=== PATIENT | female | born 1965 | race Caucasian/White ===

== ENCOUNTER 2022-03-12 05:07 | Observation (INO) ==
--- NOTE | 2022-02-07 15:42 | PAT Medication Instructions ---
Medication Instructions Date of Service February 07, 2022 Home Medications rizatriptan 10 mg tablet 10 mg PO Q2H PRN magnesium oxide 500 mg tablet 500 mg PO HS cholecalciferol (vitamin D3) 50 mcg (2,000 unit) capsule 2,000 unit PO QAM atorvastatin 40 mg tablet 80 mg PO HS Repatha INJ ezetimibe 10 mg tablet 10 mg PO HS hydrochlorothiazide 25 mg tablet 25 mg PO QAM Continue as directed rizatriptan 10 mg tablet 10 mg PO Q2H PRN(if needed) ASK your prescriber and surgeon Repatha INJ DO NOT take the morning of surgery cholecalciferol (vitamin D3) 50 mcg (2,000 unit) capsule 2,000 unit PO QAM hydrochlorothiazide 25 mg tablet 25 mg PO QAM Take evening before surgery magnesium oxide 500 mg tablet 500 mg PO HS atorvastatin 40 mg tablet 80 mg PO HS ezetimibe 10 mg tablet 10 mg PO HS Other Notes NOTHING TO EAT OR DRINK AFTER MIDNIGHT. If you have any questions please call us at [phone] or [phone] or [phone] or [phone]
--- NOTE | 2022-02-10 08:20 | Anesthesiology Consultation ---
Date of Service February 10, 2022 Assessment & Plan (1) Encounter for pre-operative examination: - Patient acceptable risk for surgery pending surgeon-ordered PCP preop evaluation (Dr. Hillary Ugarte, scheduled 02/27). - COVID screening: Per assessment on 02/10: No known COVID-19 positive contacts or current COVID-19 related symptoms. Travel screen negative. At surgeon discretion if preop Covid testing being done. - Outpatient joint assessment: Pt currently scheduled for inpatient pathway. If surgeon requests review for outpatient joint pathway, patient is acceptable candidate for outpatient joint program from anesthesia standpoint pending surgeon's office assessment of pt motivation/support/completion of same day joint program preop requirements. Chart Review Chart Review: Patient seen in Pre Admission Testing Teaching & Discussion Pre-Anesthesia Teaching/Discussion Notes: Instructed NPO after midnight before surgery,except medications with 15 cc of water. Medication instructions provided according to the PAT guidelines. History Surgery Operation Date: 03/12/22 09:15 Proposed Procedures p Left Total Knee Arthroplasty - Thor Funes MD Height/Weight Height: 5 ft 4 in Weight: 92.5 kg Allergies Allergy/AdvReac Type Severity Reaction Status Date / Time No Known Allergies Allergy Verified 02/07/22 14:57 Medications Home Medications Medication Instructions Recorded Confirmed Last Taken rizatriptan 10 mg tablet 10 mg PO Q2H PRN migraines 12/27/19 02/07/22 Unknown magnesium oxide 500 mg tablet 500 mg PO HS 01/05/20 02/07/22 Unknown cholecalciferol (vitamin D3) 50 2,000 unit PO QAM 01/19/20 02/07/22 Unknown mcg (2,000 unit) capsule atorvastatin 40 mg tablet 80 mg PO HS 02/13/20 02/07/22 Unknown Repatha INJ Q30M 02/07/22 Unknown ezetimibe 10 mg tablet 10 mg PO HS 02/07/22 02/07/22 Unknown hydrochlorothiazide 25 mg tablet 25 mg PO QAM 02/07/22 02/07/22 Unknown Past Medical History Medical History Fluid retention Controlled with HCTZ (also on for HTN) History of COVID-19 Suspected Fall 2019 (no formal testing but was positive and patient was symptomatic- headache, flu-like symptoms > resolved) Hyperlipidemia Hypertension Migraines Hx Osteoarthritis Exercise / Class Metabolic Activity II 4-5 Yardwork/Stairs/Walk up hill Past Family History Family History Daughter Factor V deficiency Other Deep vein thrombosis Past Surgical History Surgical History History of carpal tunnel release of both wrists Hx of colonoscopy Hx of tubal ligation Past Anesthesia History No Hx of Anesthesia Complications and No Family Hx of Anesthesia Complications Mother- PONV History of PONV No Hx of PONV and No Hx of Motion Sickness Social History Smoking Status: Never smoker Do You Dip or Chew Tobacco: No Hx Alcohol Use: Yes alcohol intake frequency: holidays/special occasions only Hx Substance Use: No substance use type: does not use Review of Systems Patient denies chest pain, shortness of breath, dyspnea on exertion, reflux, cough, wheezing, palpitations. Physical Exam Vital Signs VITALS BP 117/77 P 62 TEMP 98.5 SP02 98%RA RESP 16 PHYSICAL Full cervical extension range of motion. Full TMJ range of motion. TMD 3 finger breaths Mallampati Score 2 Dentition: missing molars, crown on molar Lungs: clear throughout to auscultation Cardiac: regular rate and rhythm, no murmurs noted Spine: normal Carotid arteries: negative bruit Extremities: no edema Lab Results Anesthesia Preop Results Results Anesthesia Widget: WBC 4.96 K/ul (4.8-10.8) 02/10/22 Hgb 13.2 g/dl (12.0-16.0) 02/10/22 Hct 39.3 % (34.1-44.9) 02/10/22 Plt 221 K/uL (130-400) 02/10/22 Na 141 mmol/L (136-145) 02/10/22 K 3.8 mmol/L (3.5-5.1) 02/10/22 Cl 104 mmol/L (98-107) 02/10/22 CO2 31 mmol/L (21-32) 02/10/22 BUN 12 mg/dl (6-23) 02/10/22 Creat 0.55 mg/dl (0.6-1.2) L 02/10/22 Glucose Level 74 mg/dl (70-99(Fasting)) 02/10/22 PT 10.4 Seconds (9.0-12.0) 02/10/22 PTT 25.5 Seconds (21.0-31.0) 02/10/22 INR 1.0 (0.9-1.1) 02/10/22 Urine Color Yellow 02/10/22 Urine Appearance Clear (Clear) 02/10/22 Urine pH 6.0 (4.5-7.5) 02/10/22 Urine Specific [place] 1.007 (1.000-1.030) 02/10/22 Urine Protein Negative (Negative) 02/10/22 Urine Glucose (UA) Negative (Negative) 02/10/22 Urine Ketones Negative (Negative) 02/10/22 Urine Blood Negative (Negative) 02/10/22 Urine Nitrite Negative (Negative) 02/10/22 Urine Bilirubin Negative (Negative) 02/10/22 Urine Urobilinogen Negative (Negative) 02/10/22 Urine Leukocyte Esterase Trace (Negative) H 02/10/22 Urine WBC (Auto) 1-5 /hpf (0-5) 02/10/22 Urine RBC (Auto) 0-4 /hpf (0-4) 02/10/22 Urine Hyaline Casts (Auto) 0 /lpf (0-5) 02/10/22 Urine Epithelial Cells (Auto) 20-30 /lpf (0-5) H 02/10/22 Urine Bacteria (Auto) Negative (Negative) 02/10/22 Blood Type A Positive 02/10/22 Antibody Screen NEGATIVE 02/10/22 Testing Laboratory Results 01/29/22 HGBA1C 6.1% Electrocardiogram Date: 02/10/22 Findings: + NSR @ (60) Chest X-Ray Date: 02/10/22 Findings: + NAD Stress Test Date: 11/11/20 Type: exercise Stress echo was negative for inducible ischemia. 90% MPHR. 6.4 METS. Occasional PVCs/PACs with stress. LVEF 55-59%. No significant valvular disease. COVID-19 Risk Screen Screening Information COVID-19 Screen Date: 02/10/22 Exposure 21 Days Family/Household +COVID Last 21 Days: No Exposure 10 Days Any COVID Exposure Last 10 Days: No Symptoms Last 10 Days Experienced COVID Sx Last 10 Days: No + COVID 0-90 Days COVID + in Last 0-90 Days: No
--- NOTE | 2022-03-09 08:09 | History & Physical Report ---
Date of Service March 09, 2022 Assessment & Plan (1) Osteoarthritis of left knee: Plan: Options discussed with the patient. She has failed conservative measures and would like to proceed with surgical intervention. Risks, benefits and alternatives to surgery including but not limited to infection, DVT, pain, stiffness, need for revision surgery, damage to blood vessels, damage to nerves, PE, , were discussed with the patient and they wish to proceed. Plan on left total knee arthroplasty scheduled for March 12 at [facility] with Dr. Funes. We will plan on aspirin 81 mg twice daily for 1 month postop for DVT prophylaxis. We will plan on outpatient PT. All questions answered. Patient will follow-up postop. History of Present Illness Chief Complaint: Left knee pain Primary Care Provider: GEORGE Ruiz 56-year-old female with past medical history significant for high cholesterol, migraines, hypertension who presents with ongoing left knee pain. Pain is interfering with her daily activities. She has failed conservative measures and would like to proceed with surgical intervention. Patient denies headaches, sweats, fevers, chills, double vision, blurred vision, cough, sore throat, dysphagia, chest pain, sob, wheezing, n/v/d/c, numbness, tingling, fatigue, urinary symptoms, mood disorders. ROS positive for left knee pain and stiffness. Allergies Allergy/AdvReac Type Severity Reaction Status Date / Time No Known Allergies Allergy Verified 02/07/22 14:57 Home Medications Medication Instructions Recorded Confirmed Type rizatriptan 10 mg tablet 10 mg PO Q2H PRN migraines 12/27/19 02/07/22 History magnesium oxide 500 mg tablet 500 mg PO HS 01/05/20 02/07/22 History cholecalciferol (vitamin D3) 50 2,000 unit PO QAM 01/19/20 02/07/22 History mcg (2,000 unit) capsule atorvastatin 40 mg tablet 80 mg PO HS 02/13/20 02/07/22 History Repatha INJ Q30M 02/07/22 History ezetimibe 10 mg tablet 10 mg PO HS 02/07/22 02/07/22 History hydrochlorothiazide 25 mg tablet 25 mg PO QAM 02/07/22 02/07/22 History Past Med/Surg History Medical History Fluid retention Controlled with HCTZ (also on for HTN) History of COVID-19 Suspected Fall 2019 (no formal testing but was positive and patient was symptomatic- headache, flu-like symptoms > resolved) Hyperlipidemia Hypertension Migraines Hx Osteoarthritis Surgical History History of carpal tunnel release of both wrists Hx of colonoscopy Hx of tubal ligation Family History Daughter Factor V deficiency Other Deep vein thrombosis Social History Smoking Status: Never smoker Second Hand Exposure: No; Hx Alcohol Use: Yes Hx Substance Use: No Preferred Language: Northern Irish Communication Ability: Effective Gas Line Servicer Required: No Beliefs That Will Affect Care: None marital status: Current Living Situation: Spouse and Family current occupational status: employed Feels Safe at Home: Yes Assistive Devices: Contacts Review of Systems All systems reviewed & are unremarkable except as noted in HPI & below Physical Exam Constitutional: well developed and well nourished; no acute distress Eyes: PERRL, conjunctivae normal, anicteric sclerae ENMT: external ear and nose normal, oropharynx normal Neck: trachea midline, no thyromegaly Respiratory: normal respiratory effort, lungs clear to auscultation Cardiovascular: RRR, no murmur, no edema Musculoskeletal: Left knee: Varus alignment. Tenderness medial joint line. There is mild crepitation positive Hasmukh's. Stable to valgus varus stress test. Range of motion 0 to 130 degrees. Skin: no rashes, warm and dry Neurologic: patellar DTR's 2+ bilat, sensation intact Psychiatric: A+Ox3, euthymic affect Results & Data ([facility]) Diagnostic Findings Left knee radiographs demonstrate end-stage osteoarthritis left knee with pall-ke-gdpu medial compartment. There is periarticular osteophyte formation sclerosis.
[2022-03-12] MEDS ORDERED: GABAPENTIN 600 MG DOSE PO SCH (06:00)
[2022-03-12] MEDS ORDERED: TRANEXAMIC ACID 1,000 MG **IV Pre-op IV SCH (06:00)
[2022-03-12] MEDS ORDERED: TRANEXAMIC ACID 1,000 MG **IV Intra-op IV SCH (06:00)
[2022-03-12] MEDS ORDERED: ROPIVACAINE 0.5% HCL/PF 150 MG, BUPIVACAINE 0.75% MPF 20 ML, EPINEPHrine 30MG/30ML (OR ... INSTIL SCH (06:00)
[2022-03-12] MEDS ORDERED: METOCLOPRAMIDE HCL 10 MG TABLET PO SCH (06:00)
[2022-03-12] MEDS ORDERED: FAMOTIDINE 20 MG TAB PO SCH (06:00)
[2022-03-12] MEDS ORDERED: CeleBREX 200 MG CAP PO SCH ×2 (06:00→21:00)
[2022-03-12] MEDS ORDERED: LR 500ML BOLUS, THEN 15ML/HR IV SCH (06:00)
[2022-03-12] MEDS ORDERED: ceFAZolin 2000MG 2,000 MG/15 ML SYR IV SCH ×2 (06:00→16:15)
[2022-03-12] MEDS ORDERED: ACETAMINOPHEN 500 MG TAB PO SCH ×2 (06:00→14:00)
[2022-03-12] MEDS ORDERED: dexAMETHasone 4 MG TAB PO SCH (06:00)
[2022-03-12] MEDS ORDERED: MEPIVACAINE HCL 1.5% 30 ML VIAL ONE (06:23)
[2022-03-12] MEDS ORDERED: ROPIVACAINE 0.5% 5 MG/ML 30 ML VIAL ONE (06:23)
[2022-03-12] MEDS ORDERED: fentaNYL citrate 100 MCG/2 ML VIAL IV PRN (06:46)
[2022-03-12] MEDS ORDERED: ATROPINE SULFATE 0.1 MG/ML 10ML SYR IV PRN (06:46)
[2022-03-12] MEDS ORDERED: ePHEDrine sulfate 50 MG/ML AMP IV PRN (06:46)
[2022-03-12] MEDS ORDERED: ONDANSETRON INJ 2 MG/ML 2 ML VIAL IV PRN ×3 (06:46→17:06)
[2022-03-12] MEDS ORDERED: ONDANSETRON INJ 2 MG/ML 2 ML VIAL ONE (06:53)
[2022-03-12] MEDS ORDERED: LIDOCAINE 2% MPF LOCAL 5 ML VIAL INFIL ONE (06:53)
[2022-03-12] MEDS ORDERED: fentaNYL citrate 100 MCG/2 ML VIAL ONE (06:53)
[2022-03-12] MEDS ORDERED: MIDAZOLAM HCL 1 MG/ML 2ML VIAL ONE (06:53)
[2022-03-12] MEDS ORDERED: PROPOFOL IV EMULSION 10 MG/ML 20 ML VIAL IV ONE ×3 (06:53→09:21)
[2022-03-12] MEDS ORDERED: ORTHO JOINT ANESTHETIC ONE (07:25)
--- NOTE | 2022-03-12 07:30 | History & Physical Bridge Note ---
Date of Service March 12, 2022 History & Physical Bridge Note I have examined the patient, reviewed the History & Physical and in the interval since the performance of the History & Physical I have noted the following changes of clinical significance: no changes noted
[2022-03-12] MEDS ORDERED: METOCLOPRAMIDE HCL INJ 5 MG/ML 2 ML VIAL IV PRN ×2 (10:06→17:06)
[2022-03-12] MEDS ORDERED: NALOXONE HCL 0.4 MG/1 ML VIAL/CARP IV PRN ×2 (10:06→17:06)
[2022-03-12] MEDS ORDERED: MAGNESIUM HYDROXIDE SUSP 30 ML UDC PO PRN ×2 (10:06→17:06)
[2022-03-12] MEDS ORDERED: HYDROmorphone INJ 0.5 MG/0.5 ML SYR IV PRN ×2 (10:06→17:06)
[2022-03-12] MEDS ORDERED: bisacodyL 10 MG SUPP PR PRN ×2 (10:06→17:06)
[2022-03-12] MEDS ORDERED: SODIUM CHLORIDE 0.9% 1000ML 1,000 ML IV SCH ×2 (10:15→17:15)
--- NOTE | 2022-03-12 10:15 | Post Operative Brief Note ---
Immediate Post Op Note v1 Date of Surgery March 12, 2022 Pre & Post Diagnosis Operation Date: 03/12/22 07:15 Pre-Op Diagnosis: Primary Osteoarthritis of Left Knee Post-Op Diagnosis: Primary Osteoarthritis of Left Knee I identified the patient and participated in the time-out.: Yes Procedure Operation Date: 03/12/22 07:15 Actual Procedures p Left Total Knee Arthroplasty(Left), lateral release, ky and Acticoat superficial wound VAC- Thor Funes MD Surgeon Thor Funes MD Mattress Weaver Fabien TERRY Estimated Blood Loss 5 Findings Consistent with Post-Op Diagnosis Specimens Bone cuts Drains Hemovac Drain Anesthesia Type MAC Spinal Regional Complications none Disposition Accompanied Patient To Recovery: No Overlapping Procedure I was immediately available: during the entire case.
--- NOTE | 2022-03-12 10:26 | Operative Report ---
Post Operative Report Pre & Post Diagnosis Operation Date: 03/12/22 07:15 Pre-Op Diagnosis: Primary Osteoarthritis of Left Knee Post-Op Diagnosis: Primary Osteoarthritis of Left Knee I identified the patient and participated in the time-out.: Yes Procedure Operation Date: 03/12/22 07:15 Actual Procedures p Left Total Knee Arthroplasty(Left), lateral release, ky and Acticoat superficial wound VAC application- Thor Funes MD Surgeon Thor Funes MD Sanforizing Machine Operator Fabien TERRY Estimated Blood Loss 5 Findings Consistent with Post-Op Diagnosis Specimens Bone cuts Drains 2 Hemovac Anesthesia Type MAC Spinal Regional Complications none Disposition Disposition: Recovery Room Indications 56-year-old female with chronic left knee pain progressive osteoarthritis over time with [id number] medial compartment and patellofemoral joint arthritis with a varus knee. Description of Procedure Patient was taken to the operating room placed supine on the operating table and anesthetized under spinal MAC regional block anesthesia. Exam under anesthesia demonstrated moderately large effusion, no instability, full range of motion, and obese upper thigh and proximal knee. A pneumatic tourniquet was placed about the thigh of the left lower extremity. The left lower extremity was prepped and draped in usual sterile fashion. The leg was elevated exsanguinated with an Esmarch bandage and the pneumatic tourniquet was raised to 350 mm mercury. An anterior incision was made across the left knee. The skin was incised longitudinally subcutaneous flaps were elevated and an incision was made through the medial retinaculum extending up into the mid third of the quadriceps tendon and extended down to the medial tibial tubercle. Intra-articular findings demonstrated tricompartmental osteoarthritic changes with [id number] medial compartment grade III chondromalacia lateral femoral condyle and patella with large superior patellar osteophyte. The knee was exposed by excising the infrapatellar fat pad, excising the meniscal remnants and anterior cruciate ligament. Any inflamed synovial tissue was resected. The fat pad over the anterior femur was resected for placement of the component in that area. The lateral synovial bands were release. The femur was exposed. The drill hole was made into the intramedullary canal the femur followed by the guide manasa and distal femoral cutting guide adjusted to resect a standard distal femoral cut and a 5 degree valgus cut. The distal femoral cut was made with the oscillating saw. The knee was extended and a subperiosteal peel lateral release was performed around the patella. The patella width was measured and width was reproduced using freehand cut technique. The 35 millimeter symmetrical patella was used. 3 drill holes are made for the pegs. The tibia was exposed. An exterior tibial cutting guide was placed to make a perpendicular cut to the long axis of the tibia placing some posterior slope on the cut. the proximal cut was made with the oscillating saw. All osteophytes were resected. Attention was taken back to the femur and the measuring guide was placed and the femur sized for 7. The drill holes were placed in 3 degrees of external rotation to match the epicondylar axis. The size 7 cutting block was applied and fit well. The anterior posterior and chamfer cuts were made with the oscillating saw. All osteophytes were resected. The lamina traffic expert was used to assess ligamentous balance and the ligaments were balanced in extension and flexion. The tibia was reexposed and measured for a size E tibial component. This was externally rotated in line with the tibial tubercle and the fixation pins were drilled. The proximal tibia was fashioned with the drill and punch. The size 7 CR femoral trial was inserted. The trial MC inserts were used. The 10 mm insert gave balanced ligaments through full range of motion. The patella tracked centrally but had some lateral tilt so I did a partial lateral release leaving the synovium intact which allowed patella tracks centrally through full range of motion.. the trials were removed. The orthomix anesthetic cocktail was injected per protocol. The knee was then copiously irrigated with pulsatile lavage saline solution. The final components were cemented with Refobacin bone cement. The final components were [employer] persona left 7 standard CR femoral component, E left tibial component, 10 MC tibial polyethylene and a 35 symmetrical patella. After the cement cured with the knee in full extension the Betadine soak was used per protocol. The knee joint was copiously irrigated with pulsatile lavage saline solution . 2 drains were brought out laterally and connected to a Hemovac. The quadriceps tendon and medial retinaculum were closed with interrupted [id number] #1 Vicryl sutures. The knee was taken through a full range of motion and repair was secure. The subcutaneous tissues were closed with 2-0 Vicryl sutures and skin was closed with hao. A ky and Acticoat superficial wound VAC was applied and the patient tolerated the procedure well. Fabien TERRY my physician management assistant, participated as promotions assistant sales marketing and was an integral part in all aspects of the procedure. He assisted in soft tissue retraction, instrument management ,leg positioning, the closure application of superficial wound VAC and will participate in the postoperative care of the patient. I attest to the content of the Intraoperative Record and any orders documented therein. Any exceptions are noted below.
--- NOTE | 2022-03-12 10:29 | Anesthesiology Progress Note ---
Date of Service March 12, 2022 Anesthesia Post Procedure Vital Signs Vital Signs: Temp Pulse Resp BP Pulse Ox O2 Del Method O2 Flow Rate 03/12/22 10:25 77 16 118/62 95 Room Air 03/12/22 10:15 79 16 117/58 L 99 Oxymask 5 03/12/22 10:09 98.8 F 78 16 103/64 98 Oxymask 5 03/12/22 05:56 98.2 F 82 18 135/80 98 Room Air Transfer of Care Handoff Completed per policy Notes Mental Status: alert / awake / arousable and participated in evaluation Patient Amnestic to Procedure: Yes Nausea / Vomiting: adequately controlled Pain: adequately controlled Airway Patency, RR, SpO2: stable & adequate BP & HR: stable & adequate Hydration State: stable & adequate Neuraxial Anesthesia: was administered and sensory block is resolving Anesthetic Complications: no major complications apparent and Pt Satisfied with anesthetic care
--- NOTE | 2022-03-12 10:48 | XRay Report ---
LEFT KNEE 2 VIEWS History: Left total knee arthroplasty. Degenerative arthritis. Postop. FINDINGS: The patient is status post a left total knee arthroplasty. The hardware is intact. No fract ure or dislocation. Skin hao and surgical drains are in place. IMPRESSION: Left total knee arthroplasty. No evidence for hardware complication. ACT 112: Negative or not required by law. Electronically signed by: Guille Naqvi M.D. 03/12/2022 10:47 AM
[2022-03-12] MEDS: oxyCODONE HCL IR 5 MG TAB (IMMEDIATE RELEASE) PO PRN ×3 (10:59→20:50)
[2022-03-12] MEDS ORDERED: RIZATRIPTAN BENZOATE 10 MG TAB PO PRN (16:15)
--- NOTE | 2022-03-12 17:50 | Hospitalist Consultation ---
Date of Consultation March 12, 2022 Assessment & Plan (1) Status post total left knee replacement: -Patient is currently afebrile, hemodynamically stable, and stable on RA -Pain control, antibiotics, IV fluids and DVT PPX per the primary team -Adding BID IV famotidine for now for GI ulcer prophylaxis -Agree with am labs (2) Migraines: -Continue prn rizatriptan (3) Hyperlipidemia: -Continue statin (4) Hypertension: -Hemodynamically stable -Agree with restarting HCTZ tomorrow if hemodynamically stable Plan The patient was discussed with Dr. Fox at the time of admission Supervising Physician Co-Signing Physician Notes I personally saw and examined the patient. I verified all osborne points and agree with Michael Jackson PA-C with the following exceptions and/or additions: 56 year old POD#0 left TKA O/E HS1+2, no murmurs, Chest CTAB, Abdo SNT, left foot S1 dermatome numbness but improving throughout the day A/P Patient appears stable. Thank you for the consult, medicine to review labs and patient tomorrow. No change to plan as above. History of Present Illness Reason for Consultation: Post-op medical management Requesting Physician: Thor Funes MD Attending Physician: Dr. Richard Fox History of Present Illness Agustina is a 56 year old female with a PMH significant for HTN, Hyperlipidemia, Vitamin D deficiency, and left knee OA who presented to the [facility] OR on 03/12/22 for Left Total Knee Arthroplasty with Dr. Funes. Per the post-op note, the patient had an EBl of approximately 5 mL, anesthesia was listed as MAC spinal regional, and there were no reported intraoperative complications. At the time of the exam the patient was resting comfortably in bed in no acute distress. She states that she has no complaints at the time of the exam. She states that her left lower extremity is still mostly numb since the procedure but she is start to get back more motor function. Allergies Allergy/AdvReac Type Severity Reaction Status Date / Time No Known Allergies Allergy Verified 03/12/22 05:37 Home Medications Medication Instructions Recorded Confirmed Type rizatriptan 10 mg tablet 10 mg PO Q2H PRN migraines 12/27/19 03/12/22 History magnesium oxide 500 mg tablet 500 mg PO HS 01/05/20 03/12/22 History cholecalciferol (vitamin D3) 50 2,000 unit PO QAM 01/19/20 03/12/22 History mcg (2,000 unit) capsule atorvastatin 40 mg tablet 80 mg PO HS 02/13/20 03/12/22 History Repatha INJ Q30M 02/07/22 History ezetimibe 10 mg tablet 10 mg PO HS 02/07/22 03/12/22 History hydrochlorothiazide 25 mg tablet 25 mg PO QAM 02/07/22 03/12/22 History acetaminophen 500 mg tablet 1,000 mg PO Q8 #60 tabs 03/12/22 Rx (Tylenol Extra Strength) aspirin 81 mg tablet,delayed 81 mg PO BID #60 tabs 03/12/22 Rx release cefadroxil 500 mg capsule 500 mg PO BID #28 caps 03/12/22 Rx celecoxib 200 mg capsule (Celebrex) 200 mg PO BID #60 caps 03/12/22 Rx ondansetron HCl 4 mg tablet 4 mg PO Q8H PRN nausea and 03/12/22 Rx vomiting #20 tabs oxycodone 5 mg tablet 5 - 10 mg PO .Q4h-6h PRN pain #30 03/12/22 Rx tabs Patient History Medical History (Updated 03/12/22 @ 18:16 by Michael Jackson PA-C) Fluid retention Controlled with HCTZ (also on for HTN) History of COVID-19 Suspected Fall 2019 (no formal testing but was positive and patient was symptomatic- headache, flu-like symptoms > resolved) Hyperlipidemia Hypertension Migraines Hx Osteoarthritis Surgical History (Updated 03/12/22 @ 18:12 by Michael Jackson PA-C) History of carpal tunnel release of both wrists Hx of colonoscopy Hx of tubal ligation Family History Daughter Factor V deficiency Other Deep vein thrombosis Social History Smoking Status: Never smoker Second Hand Exposure: No; Do You Dip or Chew Tobacco: No; Tobacco Cessation Education Requested by Patient: No Hx Alcohol Use: No Hx Substance Use: No Preferred Language: Kinyarwanda Communication Ability: Effective Rn Occupational Health Required: No Beliefs That Will Affect Care: None marital status: Current Living Situation: Family current occupational status: employed Other Information That Helps Us Care for You: No Feels Safe at Home: Yes Safety Concerns: Feels Safe At This Time Assistive Devices: Contacts Review of Systems Review of Systems: Denies current fever, chills, headache, changes in vision, hearing, taste, and smell, chest pain, SOB, cough, abdominal pain, nausea, vomiting, diarrhea, hematemesis, melena, dysuria, hematuria, and recent falls. All systems have been reviewed and are otherwise negative. Physical Exam Physical Exam: Physical Exam: General: In no acute distress, stated age, well-nourished, good hygiene HEENT: Normocephalic, atraumatic, no scleral icterus, pupils around round, symmetrical, and reactive to light, moist mucus membranes, trachea midline, no thyromegaly Chest/Pulm: No respiratory distress, symmetrical chest expansion, clear breath sounds throughout Cardiac: RRR, no murmurs noted Abdomen: Negative for ascites and bruising, normoactive bowel sounds, soft, non-tender to palpation throughout Musculoskeletal: Patient with left lower extremity currently wrapped and without signs of drainage, currently with drain in place with a small amount of non-infected blood, patient with intact sensation and motor function in the BL lower extremities Extremities: Radial, dorsalis pedis, and posterior tibial pulses are intact and symmetrical, no edema noted in the BL LE's Skin: Warm, dry, no rashes , lesions, or scars noted Neuro: Alert and oriented to person, place, month, year, and president, no focal defects, CN II-XII tested and intact, finger to nose test negative, no tremors noted Psych: No acute distress, calm and cooperative during the exam Results & Data Results & Data ([facility]) Vital Signs (Past 12 Hours) Vital Signs Temp Pulse Resp BP BP Pulse Ox O2 Del Method 03/12/22 16:25 36.7 C 72 16 118/74 95 Room Air 03/12/22 15:30 37 C 76 18 111/59 L 95 Room Air 03/12/22 14:25 36.9 C 70 18 132/66 96 Room Air 03/12/22 13:15 81 18 124/68 99 Room Air 03/12/22 12:10 76 18 128/60 97 Room Air 03/12/22 11:35 36.5 C 88 18 127/61 98 Room Air 03/12/22 11:05 70 18 130/67 97 Room Air 03/12/22 10:36 36.7 C 79 18 125/63 96 Room Air 03/12/22 10:25 77 16 118/62 95 Room Air 03/12/22 10:15 79 16 117/58 L 99 Oxymask 03/12/22 10:09 37.1 C 78 16 103/64 98 Oxymask 03/12/22 05:56 36.8 C 82 18 135/80 98 Room Air O2 Flow Rate 03/12/22 16:25 03/12/22 15:30 03/12/22 14:25 03/12/22 13:15 03/12/22 12:10 03/12/22 11:35 03/12/22 11:05 03/12/22 10:36 03/12/22 10:25 03/12/22 10:15 5 03/12/22 10:09 5 03/12/22 05:56 Diagnostic Findings Knee X-Ray 03/12/22 10:08 LEFT KNEE 2 VIEWS History: Left total knee arthroplasty. Degenerative arthritis. Postop. FINDINGS: The patient is status post a left total knee arthroplasty. The hardware is intact. No fracture or dislocation. Skin hao and surgical drains are in place. IMPRESSION: Left total knee arthroplasty. No evidence for hardware complication. ACT 112: Negative or not required by law. Electronically signed by: Guille Naqvi M.D. 03/12/2022 10:47 AM ECG Additional Comments: No ECG at the time of the consult PG Care Time/CCT Total # of Minutes Spent Total Time Spent with Patient: Total time spent is greater than 50% in coordination of care (as documented) at patient's floor/unit and/or counseling patient: [place] [address] Office/OBS Consult Lvl 2 Patient Type New Medical Decision Making Straight Forward Diagnoses Status post total left knee replacement Z96.652 Migraines G43.909 Hyperlipidemia E78.5 Hypertension I10
[2022-03-12] MEDS: FAMOTIDINE 20 MG in SYRINGE 3 ML IV SCH (20:50)
[2022-03-12] MEDS: CeleBREX 200 MG CAP PO SCH (20:51)
[2022-03-12] MEDS: DOCUSATE SODIUM 100 MG CAP PO SCH (20:54)
[2022-03-12] MEDS: ASPIRIN 81 MG ECTAB PO SCH (20:54)
[2022-03-12] MEDS: ACETAMINOPHEN 500 MG TAB PO SCH (20:56)
[2022-03-12] MEDS ORDERED: EZETIMIBE 10 MG TABLET PO SCH (21:00)
[2022-03-12] MEDS ORDERED: DOCUSATE SODIUM 100 MG CAP PO SCH (21:00)
[2022-03-12] MEDS ORDERED: MAGNESIUM OXIDE 400 MG TAB PO SCH (21:00)
[2022-03-12] MEDS ORDERED: SENNA 8.6 MG TAB PO SCH ×2 (21:00)
[2022-03-12] MEDS ORDERED: ATORVASTATIN 40 MG TAB PO SCH (21:00)
[2022-03-12] MEDS: ceFAZolin 2000MG 2,000 MG/15 ML SYR IV SCH (22:45)
[2022-03-13] MEDS: oxyCODONE HCL IR 5 MG TAB (IMMEDIATE RELEASE) PO PRN ×3 (03:04→12:14)
[2022-03-13] MEDS: ACETAMINOPHEN 500 MG TAB PO SCH (06:21)
[2022-03-13] MEDS: ceFAZolin 2000MG 2,000 MG/15 ML SYR IV SCH (06:22)
[2022-03-13 07:47] LABS: Hematocrit (blood only) 33.9 % (34.1-44.9); Hemoglobin 11.5 g/dl (12.0-16.0); Mean Corpuscular Hgb Conc 33.9 g/dL (32.0-36.0); Mean Corpuscular Volume 91.4 fL (80.0-100.0); Platelet Count 208 K/uL (130-400); RDW Coefficient of Variation 14.4 % (11.5-14.5); RDW Standard Deviation 48.5 fL (36.4-46.3); Red Blood Count 3.71 M/uL (3.93-5.22); White Blood Count 14.29 K/ul (4.8-10.8)
[2022-03-13 08:07] LABS: BUN Creatinine Ratio 22.6 (10-20); Calcium 8.4 mg/dl (8.5-10.1); Creatinine Clr Calc Pharmacy 105.9 ml/min; Est GFR (African American) 115.2 ml/min; Est GFR (Non-African American) 99.4 ml/min; Potassium 3.8 mmol/L (3.5-5.1)
[2022-03-13] MEDS: DOCUSATE SODIUM 100 MG CAP PO SCH (08:58)
[2022-03-13] MEDS: CeleBREX 200 MG CAP PO SCH (08:58)
[2022-03-13] MEDS ORDERED: MULTIVITAMIN TAB PO SCH ×2 (09:00)
[2022-03-13] MEDS ORDERED: CHOLECALCIFEROL 1,000 UNITS 25 MCG TAB PO SCH (09:00)
[2022-03-13] MEDS ORDERED: hydroCHLOROthiazide 25 MG TAB PO SCH (09:00)
[2022-03-13] MEDS: FAMOTIDINE 20 MG in SYRINGE 3 ML IV SCH (09:01)
[2022-03-13] MEDS: ASPIRIN 81 MG ECTAB PO SCH (09:51)
--- NOTE | 2022-03-13 11:08 | Orthopedic Progress Note ---
Date of Service March 13, 2022 Assessment & Plan (1) Osteoarthritis of left knee: Plan: Postop day 1 status post left total knee arthroplasty. PT/OT protocols. Weightbearing as tolerated. Patient is progressing well and they feel patient can be discharged home. DVT prophylaxis-aspirin p.o. twice daily, SCDs, ALIA damon. Pain management as written. Mild leukocytosis-likely secondary to surgical stress and/or preoperative steroids. Patient currently asymptomatic and afebrile. Discharge planning-patient is planning for home health PT discharged. Plan for discharge to home today. Admission and Anticipated Discharge Date Admission Date: March 12, 2022 Subjective Postop day 1 Patient lying in bed asleep. Easily awoken. No complaints this morning. States she just finished her physical therapy session which went well. Denies shortness of breath, chest pain, lightheadedness. Physical Exam Physical Exam: Dressings are clean, dry, and intact. Calves are soft nontender. Neurovascular intact. Toes are mobile. She has good dorsiflexion and plantarflexion of the left knee. Results & Data ([facility]) Vital Signs (Past 12 Hours) Vital Signs Temp Pulse Resp BP BP Pulse Ox O2 Del Method 03/13/22 08:57 70 107/62 03/13/22 07:16 37 C 64 16 112/68 96 Room Air 03/13/22 03:09 37.0 C 84 16 121/64 95 Room Air 03/12/22 23:16 37.2 C 79 16 116/69 94 Room Air Laboratory Results Laboratory Results WBC 14.29 K/ul (4.8-10.8) H 03/13/22 07:08 RBC 3.71 M/uL (3.93-5.22) L 03/13/22 07:08 Hgb 11.5 g/dl (12.0-16.0) L 03/13/22 07:08 Hct 33.9 % (34.1-44.9) L 03/13/22 07:08 MCV 91.4 fL (80.0-100.0) 03/13/22 07:08 MCH 31.0 pg (25.0-34.0) 03/13/22 07:08 MCHC 33.9 g/dL (32.0-36.0) 03/13/22 07:08 RDW Std Deviation 48.5 fL (36.4-46.3) H 03/13/22 07:08 RDW Coeff of Alfonzo 14.4 % (11.5-14.5) 03/13/22 07:08 Plt Count 208 K/uL (130-400) 03/13/22 07:08 MPV 11.0 fL (9.4-12.3) 03/13/22 07:08 Sodium 139 mmol/L (136-145) 03/13/22 07:08 Potassium 3.8 mmol/L (3.5-5.1) 03/13/22 07:08 Chloride 105 mmol/L (98-107) 03/13/22 07:08 Carbon Dioxide 29 mmol/L (21-32) 03/13/22 07:08 Anion Gap 5 (3-11) 03/13/22 07:08 BUN 14 mg/dl (6-23) 03/13/22 07:08 Creatinine 0.62 mg/dl (0.6-1.2) 03/13/22 07:08 Est Cr Clr Drug Dosing 105.9 ml/min 03/13/22 07:08 Est GFR ( Amer) 115.2 ml/min 03/13/22 07:08 Est GFR (Non-Af Amer) 99.4 ml/min 03/13/22 07:08 BUN/Creatinine Ratio 22.6 (10-20) H 03/13/22 07:08 Glucose 110 mg/dl (70-99(Fasting)) H 03/13/22 07:08 Calcium 8.4 mg/dl (8.5-10.1) L 03/13/22 07:08 Impressions Knee X-Ray 03/12/22 10:08 LEFT KNEE 2 VIEWS History: Left total knee arthroplasty. Degenerative arthritis. Postop. FINDINGS: The patient is status post a left total knee arthroplasty. The hardware is intact. No fracture or dislocation. Skin hao and surgical drains are in place. IMPRESSION: Left total knee arthroplasty. No evidence for hardware complication. ACT 112: Negative or not required by law. Electronically signed by: Guille Naqvi M.D. 03/12/2022 10:47 AM
--- NOTE | 2022-03-13 13:17 | Communication Note ---
Date of Service: March 13, 2022 Pt seen briefly before she left the hospital. Reports feeling very well, no complaints. Labs and vitals reviewed and acceptable Medically stable for discharge
--- NOTE | 2022-03-13 17:20 | Discharge Summary ---
Date of Service March 13, 2022 Admission HPI Per Admitting Provider 56-year-old female with past medical history significant for high cholesterol, migraines, hypertension who presents with ongoing left knee pain. Pain is interfering with her daily activities. She has failed conservative measures and would like to proceed with surgical intervention. Patient denies headaches, sweats, fevers, chills, double vision, blurred vision, cough, sore throat, dysphagia, chest pain, sob, wheezing, n/v/d/c, numbness, tingling, fatigue, urinary symptoms, mood disorders. ROS positive for left knee pain and stiffness. Admission Exam Per Admitting Provider Constitutional: well developed and well nourished; no acute distress Eyes: PERRL, conjunctivae normal, anicteric sclerae ENMT: external ear and nose normal, oropharynx normal Neck: trachea midline, no thyromegaly Respiratory: normal respiratory effort, lungs clear to auscultation Cardiovascular: RRR, no murmur, no edema Musculoskeletal: Left knee: Varus alignment. Tenderness medial joint line. There is mild crepitation positive Hasmukh's. Stable to valgus varus stress test. Range of motion 0 to 130 degrees. Skin: no rashes, warm and dry Neurologic: patellar DTR's 2+ bilat, sensation intact Psychiatric: A+Ox3, euthymic affect Principal Diagnosis Left knee osteoarthritis Discharge Exam Dressings are clean, dry, and intact. Calves are soft nontender. Neurovascular intact. Toes are mobile. She has good dorsiflexion and plantarflexion of the left knee. Constitutional well developed and well nourished; no acute distress Discharge Data Allergies Allergy/AdvReac Type Severity Reaction Status Date / Time No Known Allergies Allergy Verified 03/12/22 05:37 Consultations 03/10/22 14:16 Consult Hospitalist Routine Procedures Performed Operation Date: 03/12/22 07:15 Actual Procedures p Left Total Knee Arthroplasty(Left) - Thor Funes MD Ordered Studies 03/12/22 05:00 US - OR guided needle placemen Routine Hospital Course (1) Osteoarthritis of left knee: Postop day 1 status post left total knee arthroplasty. PT/OT protocols. Weightbearing as tolerated. Patient is progressing well and they feel patient can be discharged home. DVT prophylaxis-aspirin p.o. twice daily, SCDs, ALIA damon. Pain management as written. Mild leukocytosis-likely secondary to surgical stress and/or preoperative steroids. Patient currently asymptomatic and afebrile. Discharge planning-patient is planning for home health PT discharged. Plan for discharge to home today. Lab Results 03/13/22 03/13/22 Range/Units 07:08 07:08 WBC 14.29 H (4.8-10.8) K/ul RBC 3.71 L (3.93-5.22) M/uL Hgb 11.5 L (12.0-16.0) g/dl Hct 33.9 L (34.1-44.9) % MCV 91.4 (80.0-100.0) fL MCH 31.0 (25.0-34.0) pg MCHC 33.9 (32.0-36.0) g/dL RDW Std Deviation 48.5 H (36.4-46.3) fL RDW Coeff of Alfonzo 14.4 (11.5-14.5) % Plt Count 208 (130-400) K/uL MPV 11.0 (9.4-12.3) fL Sodium 139 (136-145) mmol/L Potassium 3.8 (3.5-5.1) mmol/L Chloride 105 (98-107) mmol/L Carbon Dioxide 29 (21-32) mmol/L Anion Gap 5 (3-11) BUN 14 (6-23) mg/dl Creatinine 0.62 (0.6-1.2) mg/dl Est Cr Clr Drug Dosing 105.9 ml/min Est GFR ( Amer) 115.2 ml/min Est GFR (Non-Af Amer) 99.4 ml/min BUN/Creatinine Ratio 22.6 H (10-20) Glucose 110 H (70-99(Fasting)) mg/dl Calcium 8.4 L (8.5-10.1) mg/dl Total Time Total Time Spent Total Time Spent (In Minutes): 20 Discharge Plan Discharge Items Patient Disposition: Home - Home Health Services Reason For Visit: Primary Osteoarthritis of Both Knees Discharge Diagnosis: Left knee osteoarthritis Activity: Per Instructions section Weightbearing Comment: As tolerated with walker Non-emergency contact: Surgeon Call non-emergency contact if: you have any medication questions, your pain is not controlled, your pain is concerning for you, you have a fever, your temperature is above 101, your wound has increased redness and your wound has increased drainage Follow-up/Referrals: [facility] [Outside] (as per surgeon's office ) Rosi Parnell CRNP [Primary Care Provider] - Diet: Regular Addtl Attending Provider Instructions: Your medications have been sent to your pharmacy. You can pick them up after you are discharged. Medications include a narcotic pain medication, Tylenol, Aspirin, a stool softner/stimulant, and possibly an antibiotic. Please call the office with questions about your medications. Home health services will discontinue your dressing and drain by postop day 2. ACTIVITY RECOMMENDATIONS: SELF CARE INSTRUCTIONS AFTER TOTAL KNEE REPLACEMENT A. You may need to continue a physical therapy program after discharge from the hospital. There are several options available to you. Your doctor will assist you in selecting the best one for you. 1. An out-patient facility 2 to 3 times a week for therapy or home therapy. 2. Continue working on all exercises taught to you in the hospital. Your goals should be to increase bending of your knee to 90 degrees and beyond and to fully straighten your knee. B. You may progress at your own pace from walking with a walker or crutches to a cane; then to no assistive devices. C. Make walking a part of your daily routine. Be up as much as comfortable with rest periods throughout the day. Rest with leg elevation is very important. Use the ice wrap frequently for the first 3-4 weeks. D. There are no restrictions on activities. You may ride in a car, shop, participate in casket trimmer and all social activities. E. Wear the long elastic stockings (ALIA hose) 20 hours a day for 2 weeks after surgery. They can be removed several times a day for laundering and for a bath. F. You may shower, no tub baths until cleared by your doctor. SPECIAL CARE INSTRUCTIONS: VERY IMPORTANT TO READ AND REVIEW A. There are a few signs you need to watch for after you are home. Call [facility] if you notice any of the followin. Increased severe knee pain. Some pain is expected especially when you exercise. 2. Increased swelling in your leg or knee; pain or swelling of the calf muscle in either lower leg. 3. Any fluid drainage from the incision. 4. Shortness of breath or chest pain. B. Please call [facility] at if you have any concerns or questions about your operation or recovery. The doctor or his nurse will return your call promptly. C. You must take antibiotics before dental work, bladder, bowel or other surgery. Your doctor will provide you with a permanent care to carry describing this precaution. IMPORTANT: * REMEMBER TO TAKE ASPIRIN, 81 MG, TWICE DAILY FOR 4 WEEKS UNLESS OTHERWISE DIRECTED. THIS IS YOUR BLOOD THINNER. * HIGH RISK PATIENTS MAY BE PRESCRIBED A STRONGER BLOOD THINNER. THIS WILL BE PROVIDED AT DISCHARGE. * CALL IF INCREASED PAIN, REDNESS, DRAINAGE OR FEVER GREATER THAT 101. * WEAR ALIA HOSE 20 HOURS PER DAY FOR 2 WEEKS. * ZAKIYA Dressing - This is a large suction dressing covering your incision. This will help pull any excess drainage from the wound and allow your incision to heal properly. You may shower with this if you can keep the unit outside of the shower. If any bleeding or leakage is noted please call your doctor's office. This will remain on your incision for 7 days and then should be removed. This can be done yourself or by the home nursing staff if applicable. The entire unit is disposable once removed. Once removed, keep incision clean and dry. If redness or drainage is noted, please call your surgeon. . Home health to remove hemovac per protocol. You may shower after 48 hours. FOLLOW UP VISIT: If appointment is not already scheduled: Please call [facility] to make a follow-up appointment for 2 weeks after your surgery at . Stand-Alone Forms: Anesthesia/Sed Adult Regional, Community Health, Opioid Pain Management, Smoking Cessation Medications and DC Order Prescriptions: New celecoxib [Celebrex] 200 mg Capsule 200 mg PO BID Qty: 60 0RF aspirin 81 mg Tablet,Delayed Release (Dr/Ec) 81 mg PO BID Qty: 60 0RF acetaminophen [Tylenol Extra Strength] 500 mg Tablet 1,000 mg PO Q8 Qty: 60 0RF oxycodone 5 mg Tablet 5 - 10 mg PO .Q4h-6h MDD 6 PRN (Reason: pain) Qty: 30 0RF Rx Instructions: Ongoing therapy, Dr. Funes supervising cefadroxil 500 mg capsule 500 mg PO BID Qty: 28 0RF ondansetron HCl 4 mg tablet 4 mg PO Q8H PRN (Reason: nausea and vomiting) Qty: 20 0RF Continued magnesium oxide 500 mg tablet 500 mg PO HS cholecalciferol (vitamin D3) 50 mcg (2,000 unit) capsule 2,000 unit PO QAM rizatriptan 10 mg tablet 10 mg PO Q2H PRN (Reason: migraines) atorvastatin 40 mg tablet 80 mg PO HS hydrochlorothiazide 25 mg Tablet 25 mg PO QAM ezetimibe 10 mg Tablet 10 mg PO HS Repatha INJ Q30M Discharge Orders: Discharge Order (Routine); Ordered 03/13/22 Ordered By: Nathan Valdez/Other Patient Handouts: DVT Post Op Prevention Admission Data Admit Date/Time: 03/12/22 15:10 Attending Provider: Thor Funes Admit Provider: Thor Funes Primary Care Provider: Rosi Parnell Other Providers: Richard Casarez Natalie B. ; [facility] Other Interventions: Discharge Summary Assessment (RN) Last Done: 03/13/22 12:26
== END 2022-03-13 13:50 | disposition home health service (06) ==
LOC: ASU 05:07 → 3N 05:07